=== PATIENT | male | born 1975 | race Hispanic/Latino ===

== ENCOUNTER 2019-09-05 20:12 | Inpatient (IN) | payer OTHER, SELFPAY ==
[~2019-09-05 20:12] MED LIST: Iopamidol-370 76% 500 ML 1 ML ONE
[2019-09-05] MEDS ORDERED: Succinylcholine Chloride 20 MG/ML 10 ml SYRINGE FS ONE ×2 (20:14→20:26)
[2019-09-05] MEDS ORDERED: Fentanyl 100 MCG/2 ML VIAL ONE (20:22)
[2019-09-05] MEDS ORDERED: Rocuronium Bromide 10 MG/ML (10ML VIAL) ONE (20:23)
[2019-09-05] MEDS ORDERED: Ketamine 50 MG/ML (10ML VIAL) ONE (20:23)
[2019-09-05] MEDS ORDERED: Adacel (T-DAP) 0.5 ML SYRINGE ONE (20:26)
[2019-09-05 20:32] LABS: #Basophils 0.1 thou/uL (0.0-0.2); #Eosinphils 0.1 thou/uL (0.0-0.7); #Lymphocytes 1.9 thou/uL (1.20-3.40); #Monocytes 0.4 thou/uL (0.11-0.59); #Neutrophils 9.2 thou/uL (1.40-6.50); %Basophils 0.7 % (0.0-1.0); %Eosinophils 0.6 % (0.0-10.0); %Monocytes 3.6 % (0.0-10.0); %Neutrophils 79.1 % (42.0-75.0); Hemoglobin 12.3 g/dL (14.0-18.0); Mean Corpuscular HGB CONC 31.9 g/dL (32.0-36.0); Mean Corpuscular Hemoglobin 27.2 pg (27.0-31.0); Mean Corpuscular Volume 85.4 fL (78.0-98.0); Mean Platelet Volume 9.4 fL (7.4-10.4); Platelet Count 210 thou/uL (130-400); RBC Distribution Width 15.5 % (11.5-14.5); Red Blood Cell (RBC) Count 4.53 mill/uL (4.70-6.10); White Blood Cell (WBC) Count 11.7 thou/uL (4.8-10.8)
[2019-09-05 20:36] LABS: PTT 20.9 SEC (22.9-36.1)
[2019-09-05] MEDS ORDERED: fentaNYL Citrate/PF 2,000 MCG in Sodium Chloride 0.9% 60 ML IV SCH (20:41)
[2019-09-05 20:44] LABS: ALT (SGPT) 37 U/L (8-55); AST (SGOT) 51 U/L (5-34); Albumin 4.3 g/dL (3.5-5.0); Alcohol 256 mg/dL (Less than 10); Alkaline Phosphatase 66 U/L (40-110); Anion Gap 17 mmol/L (10-20); BUN (Urea Nitrogen) 12 mg/dL (8.9-20.6); Bilirubin, Total 1.2 mg/dL (0.2-1.2); Calc. Creatinine Clearance 0 mL/min (70-130); Calcium 9.3 mg/dL (7.8-10.44); Carbon Dioxide 20 mmol/L (22-29); Chloride 101 mmol/L (98-107); Estimated GFR-MDRD 88; Globulin 2.7 g/dL (2.4-3.5); Glucose 120 mg/dL (70-105); Lipase 21 U/L (8-78); Potassium 3.3 mmol/L (3.5-5.1); Sodium 135 mmol/L (136-145)
--- NOTE | 2019-09-05 21:11 | RAD ---
EXAM: 2 views left foreleg PROVIDED CLINICAL HISTORY: Trauma COMPARISON: None FINDINGS: The proximal foreleg is incompletely included on the lateral projection. There is evidence for cortic al disruption involving the lateral margin of the distal fibula. Correlation with dedicated ankle radiographs and knee radiographs recommended. IMPRESSION: As above.
--- NOTE | 2019-09-05 21:12 | RAD ---
EXAM: XR Pelvis AP STANDARD PROVIDED CLINICAL HISTORY: Trauma FINDINGS: There is no evidence for fracture or other acute osseous abnormality. Alignment appears anatomic. Eunice nt spaces appear preserved. IMPRESSION: No evidence for an acute osseous abnormality. If there is persistent clinical concern, conservative m anagement and follow-up imaging advised.
[2019-09-05] MEDS ORDERED: Midazolam HCl 5 mg/ml Vial ONE ×2 (21:28→21:29)
--- NOTE | 2019-09-05 21:42 | RAD ---
EXAM: XR Tib Fib Rt Leg 2 View PROVIDED CLINICAL HISTORY: Trauma COMPARISON: None FINDINGS: Nondisplaced appear essentially oriented fracture at the base of the medial malleolus. Nondisplaced o bliquely oriented Finn B distal fibular fracture is suspected. No additional fracture is evident. Correlation with dedicated ankle radiographs recommended. IMPRESSION: As above.
--- NOTE | 2019-09-05 21:43 | RAD ---
EXAM: XR Knee Rt 2 View PROVIDED CLINICAL HISTORY: Pain FINDINGS: There is no evidence for fracture or other acute osseous abnormality. Alignment appears anatomic. Eunice nt spaces appear preserved. Localized soft tissue swelling medially. IMPRESSION: No evidence for an acute osseous abnormality. If there is persistent clinical concern, conservative m anagement and follow-up imaging advised.
--- NOTE | 2019-09-05 21:45 | RAD ---
EXAM: XR Chest 1 View Portable PROVIDED CLINICAL HISTORY: Trauma COMPARISON: None FINDINGS: Endotracheal tube is noted, tip of which terminates in the region of the thoracic inlet. Enteric cath eter is noted, tip of which is not visualized but is below the diaphragm. Heart appears enlarged which may be least partially on the basis of portable technique. No focal consolidation evident. No p leural fluid or pneumothorax evident with limitations due to the supine nature of the study. IMPRESSION: No definite evidence for an acute cardiopulmonary process.
--- NOTE | 2019-09-05 21:45 | RAD ---
EXAM: XR Ankle Rt 2 View PROVIDED CLINICAL HISTORY: Trauma COMPARISON: None FINDINGS: Nondisplaced parasagittally oriented fracture at the base of the medial malleolus. Nondisplaced trans versely oriented distal fibular fracture. No additional fracture is evident. Joint spaces appear preserved. IMPRESSION: Tibial and fibular fractures as described.
--- NOTE | 2019-09-05 21:46 | RAD ---
EXAM: XR Pelvis AP STANDARD PROVIDED CLINICAL HISTORY: Trauma COMPARISON: None FINDINGS: Posterior left hip dislocation. Small osseous fragment inferior to the left femoral head. No addition al fracture evident. Right hip joint space appears maintained. IMPRESSION: Posterior left hip joint dislocation with associated small fracture fragment.
[2019-09-05 21:53] LABS: Bacteria/HPF None Seen HPF (None Seen); Bilirubin Negative (Negative); Blood, Urine 1+ (Negative); Clarity Clear (Clear); Glucose, Urine (Dipstick) Normal (Negative); Leukocyte Negative Leu/uL (Negative); Nitrite Negative (Negative); Protein, Urine (Dipstick) 30 mg/dL (Neg-Trace); RBC/HPF 0-3 HPF (0-3); Squamous Epithelial 0-3 HPF (0-3); Urobilinogen Normal mg/dL (Less than 2); WBC/HPF 0-3 HPF (0-3)
[2019-09-05] MEDS ORDERED: Propofol 1,000 MG/100 ML VIAL IV ONE (21:56)
--- NOTE | 2019-09-05 21:58 | CT ---
Exam: CT brain PROVIDED CLINICAL HISTORY: Trauma COMPARISON: None FINDINGS: The ventricular system is normal in size and morphology. No evidence for intracranial hemorrhage or mass effect. No evidence for skull fracture. Please see concurrently dictated CT facial bones. IMPRESSION: No evidence for intracranial hemorrhage or mass effect.
--- NOTE | 2019-09-05 21:59 | CT ---
EXAM: CT cervical spine PROVIDED CLINICAL HISTORY: Trauma COMPARISON: None FINDINGS: No evidence for fracture or traumatic subluxation. No prevertebral soft tissue swelling apparent. Vi sualized lung apices appear clear. IMPRESSION: No evidence for fracture or traumatic subluxation.
--- NOTE | 2019-09-05 22:06 | CT ---
EXAM: CT Chest Abd Pelvis W Con PROVIDED CLINICAL HISTORY: Trauma COMPARISON: None FINDINGS: The heart, pericardium and great vessels demonstrate no evidence for traumatic abnormality. There is bibasilar subsegmental atelectatic change. The lungs are free of significant opacity. No pleural fluid or pneumothorax apparent. The solid abdominal organs demonstrate no evidence for traumatic abnormality. No bowel dilatation, in flammatory fat stranding, free fluid or free air apparent. There is a comminuted mildly displaced fracture involving the posterior wall of the right acetabulum. There is a fracture fragment posterior and superior to the left acetabulum measuring about 3 cm, a fragment of the posterior wall of the left acetabulum. No additional acute osseous abnormality is lindy dent. Sagittal and coronal thoracic and lumbar spine reconstructions demonstrate maintenance of vertebral body heights without evidence for traumatic subluxation. Lower lumbar spine degenerative ch gen with minimal degenerative anterolisthesis of L4 on L5. Endotracheal tube terminates cranial to the simone. Enteric catheter terminates in proximal bowel. Ur inary bladder catheter is noted as well as right femoral venous catheter. IMPRESSION: Bilateral posterior wall acetabular fractures.
--- NOTE | 2019-09-05 22:09 | CT ---
EXAM: CT Facial Bones WO Con PROVIDED CLINICAL HISTORY: Trauma COMPARISON: None FINDINGS: Depressed inferior wall left orbital fracture with herniation of orbital fat and approximation of the inferior left rectus muscle. Associated intraorbital gas. Prominently displaced fracture involving the right parasymphyseal region of the mandible. There is gr eater than 1 mandible which anterior displacement of the right lateral fragment with respect to the symphysis. No additional mandibular fracture is evident. The TMJ alignment remains normal. Scattered opacification of ethmoid air cells and mucosal thickening involving right greater than left maxillary sinuses. IMPRESSION: 1. Displaced left orbital floor fracture with herniation of orbital fat and approximation of inferior rectus muscle. Correlate for entrapment. 2. Right parasymphyseal mandibular fracture with conspicuous displacement.
[2019-09-05 22:17] LABS: Actual Bicarbonate (HCO3a) 18.2 mEq/L (22-28); Analyzer IN Cardio ER; Base Excess (BEa) -8.6 mEq/L (-2.0 to +3.0); CO2 Tension 42.2 mmHg (35.0-45.0); Calcium, Ionized 1.17 mmol/L (1.12-1.30); Carboxyhemoglobin (COHb) 0.3 gm% (0.0-3.0); Hemoglobin (Hb) 11.3 g/dL (14.0-18.0); O2 Tension (PaO2) 93.4 mmHg (80.0-100.0); Potassium - ABG Lab 3.54 mmol/L (3.70-5.30)
[2019-09-05] MEDS ORDERED: Ondansetron PF 4 MG/2 ML Vial IVP PRN (22:21)
[2019-09-05] MEDS ORDERED: Insulin Regular 300 UNITS/3 ML VIAL SC PRN (22:21)
[2019-09-05] MEDS ORDERED: hydrALAZINE 20 MG/ML VIAL SLOW IVP PRN (22:21)
[2019-09-05] MEDS ORDERED: Dextrose 50% Abboject 50 ML SYRINGE SLOW IVP PRN (22:21)
[2019-09-05] MEDS ORDERED: Dextrose 5% in Water 1,000 ML IV PRN (22:21)
[2019-09-05 22:22] LABS: Puncture Site R RADIAL; pH, Arterial 7.25 (7.35-7.45)
--- NOTE | 2019-09-05 22:22 | RAD ---
EXAM: XR Foot Rt 2 View PROVIDED CLINICAL HISTORY: Pain FINDINGS: There is no evidence for fracture or other acute osseous abnormality. Alignment appears anatomic. Eunice nt spaces appear preserved. Overlying splint material related to ankle fractures obscures detail. IMPRESSION: No evidence for an acute osseous abnormality. If there is persistent clinical concern, conservative m anagement and follow-up imaging advised.
--- NOTE | 2019-09-05 22:23 | RAD ---
EXAM: XR Knee Lt 2 View PROVIDED CLINICAL HISTORY: Pain FINDINGS: There is no evidence for fracture or other acute osseous abnormality. Alignment appears anatomic. Deg enerative changes are seen. Vascular calcifications are seen. IMPRESSION: No evidence for an acute osseous abnormality. If there is persistent clinical concern, conservative m anagement and follow-up imaging advised.
[2019-09-05] MEDS ORDERED: Acetaminophen 650 MG Suppository PR PRN (22:24)
--- NOTE | 2019-09-05 22:24 | RAD ---
EXAM: XR Ankle Lt 2 View PROVIDED CLINICAL HISTORY: Pain status post injury COMPARISON: None FINDINGS: Nondisplaced distal fibular fracture is suspected at the level of the tibiotalar joint. Evaluation is limited due to splint material and nonstandard positioning. No definite additional fracture is evident. IMPRESSION: Findings suspicious for nondisplaced distal fibular fracture.
--- NOTE | 2019-09-05 22:25 | RAD ---
EXAM: Portable chest PROVIDED CLINICAL HISTORY: Respiratory insufficiency COMPARISON: 09/05/2019 8:45 PM FINDINGS: Significant interval change with respect to the prior examination is not apparent. The distal aspects of the enteric catheter are poorly visualized on this study. IMPRESSION: As above.
[2019-09-05] MEDS ORDERED: Sodium Chloride 0.9% 1,000 ML IV SCH (22:30)
[2019-09-05] MEDS ORDERED: Ventilator Sedation Protocol 1 EACH FS SCH (22:30)
[2019-09-05] MEDS ORDERED: Fentanyl BOLUS 250 ML IVPB PRN (22:33)
[2019-09-05] MEDS ORDERED: Propofol BOLUS 1,000 MG/100 ML VIAL IV PRN (22:33)
[2019-09-05] MEDS ORDERED: Propofol 1,000 MG/100 ML VIAL IV PRN (22:33)
[2019-09-05 22:42] LABS: Actual Bicarbonate (HCO3a) 20.4 mEq/L (22-28); Analyzer IN Cardio ER; Base Excess (BEa) -5.5 mEq/L (-2.0 to +3.0); CO2 Tension 41.5 mmHg (35.0-45.0); Calcium, Ionized 1.11 mmol/L (1.12-1.30); Carboxyhemoglobin (COHb) 0.3 gm% (0.0-3.0); Hemoglobin (Hb) 11.3 g/dL (14.0-18.0); O2 Tension (PaO2) 108.7 mmHg (80.0-100.0); Potassium - ABG Lab 3.62 mmol/L (3.70-5.30); pH, Arterial 7.31 (7.35-7.45)
[2019-09-05 23:00] LABS: Amphetamine Not Detected (NotDetected); Barbiturates Screen Not Detected (NotDetected); Benzodiazepine Screen Not Detected (NotDetected); Cocaine Metabolite Screen Not Detected (NotDetected); Medtox Control Line Valid? VALID (VALID); Medtox Reader # READER 1; Methadone Not Detected (NotDetected); Methamphetamine Not Detected (NotDetected); Opiate Screen Not Detected (NotDetected); Oxycodone Screen Not Detected (NotDetected); Phencyclidine (PCP) Not Detected (NotDetected); THC/Cannabinoid Screen Not Detected (NotDetected); Tricyclic Screen Not Detected (NotDetected)
[2019-09-05 23:23] LABS: ALV-art Gradient 124.625 (0-20); Puncture Site LRA
[2019-09-05] MEDS ORDERED: Calcium Chloride 1 GM/10 ML Abboject SYRINGE IVP SCH (23:30)
[2019-09-05 23:33] VITALS: BMI 33.3
--- NOTE | 2019-09-05 23:54 | RAD ---
EXAM: XR Hand Lt 3 View STANDARD PROVIDED CLINICAL HISTORY: Pain FINDINGS: There is no evidence for fracture or other acute osseous abnormality. Alignment appears anatomic. Eunice nt spaces appear preserved. IMPRESSION: No evidence for an acute osseous abnormality. If there is persistent clinical concern, conservative m anagement and follow-up imaging advised.
[2019-09-06 00:37] LABS: Lactic Acid 2.3 mmol/L (0.5-2.2)
[2019-09-06 00:39] LABS: Phosphorus 3.7 mg/dL (2.3-4.7)
[2019-09-06 00:41] LABS: Magnesium 1.6 mg/dL (1.6-2.6)
[2019-09-06] MEDS ORDERED: Lidocaine 1% (PF) 30 ML VIAL ONE (01:00)
[2019-09-06] MEDS ORDERED: Sodium Chloride 0.9% 1,000 ML IV SCH (01:39)
[2019-09-06] MEDS ORDERED: Potassium Chloride 40 MEQ in Premix Bag 1 BAG IVPB SCH (01:45)
[2019-09-06] MEDS ORDERED: Magnesium 2 GM/50 ML 2 GM in Premix Bag 1 BAG IVPB SCH (01:45)
[2019-09-06 04:26] LABS: #Lymphocytes 1.2 thou/uL (1.20-3.40); #Monocytes 0.6 thou/uL (0.11-0.59); #Neutrophils 6.7 thou/uL (1.40-6.50); %Basophils 0.1 % (0.0-1.0); %Eosinophils 0.3 % (0.0-10.0); %Lymphocytes 14.2 % (21.0-51.0); %Monocytes 6.6 % (0.0-10.0); %Neutrophils 78.7 % (42.0-75.0); Hemoglobin 10.3 g/dL (14.0-18.0); Mean Corpuscular HGB CONC 32.8 g/dL (32.0-36.0); Mean Corpuscular Hemoglobin 27.8 pg (27.0-31.0); Mean Corpuscular Volume 84.7 fL (78.0-98.0); Mean Platelet Volume 9.5 fL (7.4-10.4); Platelet Count 162 thou/uL (130-400); RBC Distribution Width 14.9 % (11.5-14.5); Red Blood Cell (RBC) Count 3.72 mill/uL (4.70-6.10); White Blood Cell (WBC) Count 8.5 thou/uL (4.8-10.8)
[2019-09-06 04:49] LABS: Lactic Acid 2.2 mmol/L (0.5-2.2)
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
[2019-09-06 05:23] LABS: Anion Gap 13 mmol/L (10-20); BUN (Urea Nitrogen) 12 mg/dL (8.9-20.6); Calc. Creatinine Clearance 150 mL/min (70-130); Calcium 8.2 mg/dL (7.8-10.44); Carbon Dioxide 20 mmol/L (22-29); Chloride 107 mmol/L (98-107); Estimated GFR-MDRD Greater than 90; Glucose 121 mg/dL (70-105); Magnesium 2.3 mg/dL (1.6-2.6); Potassium 5.4 mmol/L (3.5-5.1); Sodium 135 mmol/L (136-145)
[2019-09-06 05:54] LABS: CK (CPK) 5243 U/L (30-200)
[2019-09-06] MEDS: Oxazepam 10 MG CAP PO SCH ×3 (06:40→21:37)
[2019-09-06] MEDS: Sodium Chloride 0.9% 1,000 ML IV SCH ×4 (06:40→21:42)
[2019-09-06 06:53] LABS: Actual Bicarbonate (HCO3a) 19.3 mEq/L (22-28); Base Excess (BEa) -4.1 mEq/L (-2.0 to +3.0); CO2 Tension 29.7 mmHg (35.0-45.0); Calcium, Ionized 1.17 mmol/L (1.12-1.30); Carboxyhemoglobin (COHb) 0.4 gm% (0.0-3.0); Hemoglobin (Hb) 10.4 g/dL (14.0-18.0); O2 Tension (PaO2) 144.5 mmHg (80.0-100.0); Potassium - ABG Lab 4.48 mmol/L (3.70-5.30); pH, Arterial 7.43 (7.35-7.45)
[2019-09-06 07:13] LABS: ALV-art Gradient 103.575 (0-20); Puncture Site RRAD
[2019-09-06] MEDS ORDERED: Lidocaine 1% w/Epinephrine 1:100K 20 ML VIAL ONE (07:35)
[2019-09-06] MEDS ORDERED: Chlorhexidine Gluconate 15 ML UDCUP SSP ONE (07:35)
[2019-09-06] MEDS ORDERED: Bupivacaine 0.25% HCL 30 ML VIAL ONE (07:35)
[2019-09-06] MEDS ORDERED: Hydrocortisone 1% Cream 30 GM TUBE ONE (07:35)
[2019-09-06] MEDS ORDERED: AFRIN NASAL MIST 15 ML BOT ONE (07:55)
[2019-09-06] MEDS ORDERED: Fentanyl 100 MCG/2 ML VIAL ONE ×3 (08:02→11:54)
[2019-09-06] MEDS ORDERED: Midazolam HCl 2 mg/2 ml Vial ONE (08:02)
[2019-09-06] MEDS ORDERED: Famotidine/PF 20 mg/2ml Vial SLOW IVP SCH (09:00)
[2019-09-06] MEDS ORDERED: FLU VACC QS2019-20(6MOS UP)/PF 60 MCG/0.5 ML SYRINGE IM ONE (09:00)
[2019-09-06] MEDS: Folic Acid 1 MG TAB PO SCH (09:00)
[2019-09-06] MEDS: Multivitamin W/ Minerals 1 TAB PO SCH (09:00)
[2019-09-06] MEDS: Thiamine 100 MG TAB PO SCH (09:00)
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
--- NOTE | 2019-09-06 11:00 | RAD ---
Left ankle: 3 VIEWS INDICATION:Intraoperative imaging open reduction internal fixation COMPARISON:None FINDINGS: Fluoroscopic images show screw transfixing the distal fibula. IMPRESSION: Intraoperative imaging
--- NOTE | 2019-09-06 11:01 | RAD ---
Right ankle: 3 VIEWS INDICATION:Intraoperative imaging open reduction internal fixation COMPARISON:None FINDINGS: Fluoroscopic images show plate and screws transfixing distal tibia. Screw transfixes the distal fibul a. IMPRESSION: Intraoperative imaging
[2019-09-06] MEDS ORDERED: PROPOFOL 200 MG/20 ML VIAL ONE (11:18)
[2019-09-06] MEDS ORDERED: Glycopyrrolate 0.2 MG/ML 5 ML SYRINGE ONE (11:18)
[2019-09-06] MEDS ORDERED: Ondansetron PF 4 MG/2 ML Vial ONE (11:18)
[2019-09-06] MEDS ORDERED: PHENYLEPHRINE-NS 100 MCG/ML 10 ML SYRINGE ONE (11:18)
[2019-09-06] MEDS ORDERED: Dexamethasone 20 MG/5 ML VIAL ONE (11:18)
[2019-09-06] MEDS ORDERED: Ketorolac Tromethamine 30 MG/ML VIAL ONE (11:18)
[2019-09-06] MEDS ORDERED: Rocuronium Bromide 10 MG/ML (10ML VIAL) ONE (11:18)
[2019-09-06] MEDS ORDERED: Ondansetron HCl/PF 4 MG/2 ML Vial IVP PRN (11:49)
[2019-09-06] MEDS ORDERED: Promethazine HCl 25 MG/ML VIAL SLOW IVP PRN (11:49)
[2019-09-06] MEDS ORDERED: Promethazine HCl 25 MG/ML VIAL IM PRN (11:49)
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
[2019-09-06] MEDS ORDERED: Acetaminophen/Codeine Oral Solution PO SCH ×2 (12:45→18:00)
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
[2019-09-06] MEDS: Morphine 4 MG/ML VIAL SLOW IVP PRN ×4 (12:55→21:58)
[2019-09-06] MEDS: Clindamycin/D5W 900 MG in Premix Bag 1 BAG IVPB SCH ×2 (13:57→21:36)
[2019-09-06] MEDS ORDERED: Gabapentin 300 MG CAP PO SCH (15:30)
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
[2019-09-06 15:45] LABS: Anion Gap 11 mmol/L (10-20); BUN (Urea Nitrogen) 16 mg/dL (8.9-20.6); CK (CPK) 3942 U/L (30-200); Calc. Creatinine Clearance 137 mL/min (70-130); Carbon Dioxide 24 mmol/L (22-29); Chloride 105 mmol/L (98-107); Estimated GFR-MDRD 82; Glucose 195 mg/dL (70-105); Phosphorus 3.4 mg/dL (2.3-4.7); Potassium 4.9 mmol/L (3.5-5.1); Sodium 135 mmol/L (136-145)
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
[2019-09-06] MEDS: Hydrocodone-Acetamin 15 ML UDCUP PO SCH (17:30)
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
[2019-09-06] MEDS: Gabapentin 300 MG CAP PO SCH (20:05)
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
[2019-09-07] MEDS: Hydrocodone-Acetamin 15 ML UDCUP PO SCH ×5 (00:20→23:24)
[2019-09-07] MEDS: Morphine 4 MG/ML VIAL SLOW IVP PRN ×6 (03:12→22:44)
[2019-09-07] MEDS: Sodium Chloride 0.9% 1,000 ML IV SCH ×4 (05:07→22:45)
[2019-09-07] MEDS: Clindamycin/D5W 900 MG in Premix Bag 1 BAG IVPB SCH ×3 (05:08→21:25)
[2019-09-07] MEDS: Oxazepam 10 MG CAP PO SCH ×3 (05:30→22:44)
[2019-09-07 06:11] LABS: Anion Gap 9 mmol/L (10-20); BUN (Urea Nitrogen) 10 mg/dL (8.9-20.6); CK (CPK) 2374 U/L (30-200); Calc. Creatinine Clearance 183 mL/min (70-130); Carbon Dioxide 28 mmol/L (22-29); Chloride 107 mmol/L (98-107); Estimated GFR-MDRD Greater than 90; Glucose 121 mg/dL (70-105); Phosphorus 2.7 mg/dL (2.3-4.7); Potassium 4.6 mmol/L (3.5-5.1); Sodium 139 mmol/L (136-145)
[2019-09-07] MEDS: Multivitamin W/ Minerals 1 TAB PO SCH (08:29)
[2019-09-07] MEDS: Cyclobenzaprine 10 MG TAB PO PRN ×2 (08:30→21:25)
[2019-09-07] MEDS: Thiamine 100 MG TAB PO SCH (08:30)
[2019-09-07] MEDS: Gabapentin 300 MG CAP PO SCH ×3 (08:30→21:25)
[2019-09-07] MEDS: Polyethylene Glycol 3350 17 GM Packet PO SCH (08:31)
[2019-09-07] MEDS: Folic Acid 1 MG TAB PO SCH (12:55)
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
[2019-09-07 16:33] LABS: Anisocytosis SLIGHT = 6-15 cells (100X) (0-5/hpf); Band 18 % (5-11); Eosinophils 2 % (0-10); Hemoglobin 7.4 g/dL (14.0-18.0); Hypochromia SLIGHT = 6-15 cells (100X) (0-5/hpf); Lymphocytes 15 % (21-51); MDiff Complete? YES; Mean Corpuscular HGB CONC 33.3 g/dL (32.0-36.0); Mean Corpuscular Hemoglobin 28.7 pg (27.0-31.0); Mean Corpuscular Volume 86.2 fL (78.0-98.0); Monocytes 7 % (0-10); Neutrophil 58 % (42-75); Ovalocytes SLIGHT = 2-5 cells (100X) (0-1/hpf); Platelet Count 97 thou/uL (130-400); Platelet Morphology Comment Appears Decreased; Polychromasia SLIGHT = 2-3 cells (100X) (0-2/hpf); RBC Distribution Width 15.1 % (11.5-14.5); Red Blood Cell (RBC) Count 2.59 mill/uL (4.70-6.10); White Blood Cell (WBC) Count 6.1 thou/uL (4.8-10.8)
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
[2019-09-08] MEDS: Morphine 4 MG/ML VIAL SLOW IVP PRN ×3 (01:54→13:46)
[2019-09-08 05:30] LABS: #Eosinphils 0.1 thou/uL (0.0-0.7); #Lymphocytes 1.2 thou/uL (1.20-3.40); #Monocytes 0.4 thou/uL (0.11-0.59); #Neutrophils 3.7 thou/uL (1.40-6.50); %Basophils 0.3 % (0.0-1.0); %Eosinophils 2.6 % (0.0-10.0); %Lymphocytes 22.5 % (21.0-51.0); %Monocytes 6.8 % (0.0-10.0); %Neutrophils 67.9 % (42.0-75.0); Hemoglobin 7.6 g/dL (14.0-18.0); Mean Corpuscular HGB CONC 32.4 g/dL (32.0-36.0); Mean Corpuscular Hemoglobin 28.1 pg (27.0-31.0); Mean Corpuscular Volume 86.6 fL (78.0-98.0); Mean Platelet Volume 9.8 fL (7.4-10.4); Platelet Count 96 thou/uL (130-400); RBC Distribution Width 14.9 % (11.5-14.5); White Blood Cell (WBC) Count 5.4 thou/uL (4.8-10.8)
[2019-09-08 05:49] LABS: Anion Gap 7 mmol/L (10-20); BUN (Urea Nitrogen) 8 mg/dL (8.9-20.6); CK (CPK) 1733 U/L (30-200); Calc. Creatinine Clearance 194 mL/min (70-130); Calcium 8.2 mg/dL (7.8-10.44); Carbon Dioxide 31 mmol/L (22-29); Chloride 104 mmol/L (98-107); Estimated GFR-MDRD Greater than 90; Glucose 87 mg/dL (70-105); Magnesium 1.8 mg/dL (1.6-2.6); Phosphorus 2.9 mg/dL (2.3-4.7); Potassium 4.3 mmol/L (3.5-5.1); Sodium 138 mmol/L (136-145)
[2019-09-08] MEDS: Clindamycin/D5W 900 MG in Premix Bag 1 BAG IVPB SCH ×3 (06:02→21:36)
[2019-09-08] MEDS: Oxazepam 10 MG CAP PO SCH ×3 (06:02→21:36)
[2019-09-08] MEDS: Hydrocodone-Acetamin 15 ML UDCUP PO SCH ×4 (06:02→23:41)
[2019-09-08] MEDS: Sodium Chloride 0.9% 1,000 ML IV SCH ×4 (06:20→21:46)
[2019-09-08] MEDS: Cyclobenzaprine 10 MG TAB PO PRN ×2 (08:37→18:16)
[2019-09-08] MEDS: Gabapentin 300 MG CAP PO SCH ×3 (08:38→21:36)
[2019-09-08] MEDS: Enoxaparin Sodium 40 MG/0.4 ML SYRINGE SC SCH (08:38)
[2019-09-08] MEDS: Senokot S 8.6-50 MG TAB PO SCH ×2 (08:38→21:36)
[2019-09-08] MEDS: Polyethylene Glycol 3350 17 GM Packet PO SCH (08:38)
[2019-09-08] MEDS: Multivitamin W/ Minerals 1 TAB PO SCH (08:38)
[2019-09-08] MEDS: Folic Acid 1 MG TAB PO SCH (08:38)
[2019-09-08] MEDS: Thiamine 100 MG TAB PO SCH (08:38)
[2019-09-08] MEDS ORDERED: Bisacodyl 10 MG SUPP PR SCH (11:00)
[2019-09-08] MEDS ORDERED: Acetaminophen 325 MG TAB PO SCH ×2 (19:00→23:59)
[2019-09-08] MEDS ORDERED: Ketorolac Tromethamine 30 MG/ML VIAL IVP SCH (21:00)
[2019-09-08] MEDS ORDERED: Acetaminophen 325 MG/10.15 ML UDCUP PO SCH (21:30)
[2019-09-08] MEDS: Hydrocodone-Acetamin 15 ML UDCUP PO PRN (21:35)
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
[2019-09-09] MEDS: Sodium Chloride 0.9% 1,000 ML IV SCH ×4 (05:12→18:38)
[2019-09-09] MEDS: Acetaminophen 325 MG/10.15 ML UDCUP PO SCH ×3 (05:48→17:34)
[2019-09-09] MEDS: Clindamycin/D5W 900 MG in Premix Bag 1 BAG IVPB SCH ×2 (05:48→14:58)
[2019-09-09] MEDS: Ibuprofen 100 MG/5 ML UDCUP PO SCH ×3 (05:49→20:36)
[2019-09-09] MEDS: Oxazepam 10 MG CAP PO SCH ×2 (05:49→15:03)
[2019-09-09] MEDS: Hydrocodone-Acetamin 15 ML UDCUP PO SCH ×3 (05:52→17:34)
[2019-09-09 06:26] LABS: Hemoglobin 7.3 g/dL (14.0-18.0); Platelet Count 121 thou/uL (130-400)
[2019-09-09 07:07] LABS: Anion Gap 9 mmol/L (10-20); BUN (Urea Nitrogen) 9 mg/dL (8.9-20.6); CK (CPK) 1022 U/L (30-200); Calc. Creatinine Clearance 206 mL/min (70-130); Calcium 7.9 mg/dL (7.8-10.44); Carbon Dioxide 29 mmol/L (22-29); Chloride 106 mmol/L (98-107); Estimated GFR-MDRD Greater than 90; Glucose 87 mg/dL (70-105); Magnesium 1.8 mg/dL (1.6-2.6); Phosphorus 4.1 mg/dL (2.3-4.7); Potassium 4.1 mmol/L (3.5-5.1); Sodium 140 mmol/L (136-145)
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
[2019-09-09] MEDS: Thiamine 100 MG TAB PO SCH (09:40)
[2019-09-09] MEDS: Gabapentin 300 MG CAP PO SCH ×3 (09:40→20:37)
[2019-09-09] MEDS: Multivitamin W/ Minerals 1 TAB PO SCH (09:40)
[2019-09-09] MEDS: Folic Acid 1 MG TAB PO SCH (09:41)
[2019-09-09] MEDS: Enoxaparin Sodium 40 MG/0.4 ML SYRINGE SC SCH (09:43)
[2019-09-09] MEDS: Hydrocodone-Acetamin 15 ML UDCUP PO PRN ×2 (09:54→20:36)
[2019-09-09] MEDS: Polyethylene Glycol 3350 17 GM Packet PO SCH (10:11)
[2019-09-09] MEDS: Senokot S 8.6-50 MG TAB PO SCH ×2 (10:12→20:37)
[2019-09-09 19:18] VITALS: BP 164/84; TEMP 97.9
[2019-09-09] MEDS ORDERED: Clindamycin 150 MG CAP PO SCH (21:00)
[2019-09-09] MEDS ORDERED: Chlorhexidine Gluconate 15 ML UDCUP SSP SCH (21:00)
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
== END 2019-09-09 21:00 | DRG 958 ==
LOC: ERS 20:12 → EDBD 20:12 → CCU 22:26 → SURG A 09-06 18:52
PROVIDERS: ADMIT Surgery; ATTEND Surgery
PROC: 02HV33Z Insertion of Infusion Device into Superior Vena Cava, Percutaneous Approach (ICD-10-PCS; 2019-09-05)
PROC: 0SSBXZZ Reposition Left Hip Joint, External Approach (ICD-10-PCS; 2019-09-05)
PROC: 30233L1 Transfusion of Nonautologous Fresh Plasma into Peripheral Vein, Percutaneous Approach (ICD-10-PCS; 2019-09-05)
PROC: 30233N1 Transfusion of Nonautologous Red Blood Cells into Peripheral Vein, Percutaneous Approach (ICD-10-PCS; 2019-09-05)
PROC: 0QSJ04Z Reposition Right Fibula with Internal Fixation Device, Open Approach (ICD-10-PCS; principal; 2019-09-06)
PROC: 0QSG04Z Reposition Right Tibia with Internal Fixation Device, Open Approach (ICD-10-PCS; 2019-09-06)
PROC: 0NSV04Z Reposition Left Mandible with Internal Fixation Device, Open Approach (ICD-10-PCS; 2019-09-06)
PROC: 0NS Head and Facial Bones, Reposition (ICD-10-PCS; 2019-09-06)
DX: S82.51XA Displaced fracture of medial malleolus of right tibia, initial encounter for closed fracture (principal); S32.402A Unspecified fracture of left acetabulum, initial encounter for closed fracture; S02.32XB Fracture of orbital floor, left side, initial encounter for open fracture; T79.6XXA Traumatic ischemia of muscle, initial encounter; S32.491A Other specified fracture of right acetabulum, initial encounter for closed fracture; S02.69XB Fracture of mandible of other specified site, initial encounter for open fracture; F10.10 Alcohol abuse, uncomplicated; F10.129 Alcohol abuse with intoxication, unspecified; E11.9 Type 2 diabetes mellitus without complications; G51.0 Bell's palsy; G47.33 Obstructive sleep apnea (adult) (pediatric); S83.91XA Sprain of unspecified site of right knee, initial encounter; S61.412A Laceration without foreign body of left hand, initial encounter; S82.832A Other fracture of upper and lower end of left fibula, initial encounter for closed fracture; V89.2XXA Person injured in unspecified motor-vehicle accident, traffic, initial encounter; Z95.1 Presence of aortocoronary bypass graft; Z98.84 Bariatric surgery status
CPT/HCPCS: 36415; 36416; 36430; 70450; 70486; 71045; 71260; 72125; 72170; 74177; 76000; 80048; 80053; 80306; 80307; 81003; 81015; 82550; 82805; 83605; 83690; 83735; 84100; 85007; 85014; 85018; 85025; 85027; 85049; 85610; 85730; 86850; 86900; 86901; 90715; 93005; 94002; 94003; 94760; C1713; C1769; G0390; J0690; J1100; J1650; J1815; J1885; J2001; J2250; J2270; J2405; J2704; J3010; J3475; J3480; J3490; P9016; P9048; Q9967; S0020; S0028